=== PATIENT | female | born 1935 | race Caucasian/White ===

== ENCOUNTER 2017-08-12 09:33 | Emergency (ER) | payer MEDICARE, MEDICAID ==
[~2017-08-12] VITALS: Ht 152.4 cm; Wt 49.5 kg
[~2017-08-12 09:33] MED LIST: ACET-868 PO; AMIN30LI27 PO; AMLO10TA2 PO; CALC-261 PO; CLIN300C11 PO; CRAN3875 PO; CRAN425C6 PO; DEXT15DR6 EACHEYE; DOCU-141 PO; FERR1TAB44 PO; HYDR-4076 PO; HYDR-548 PO; HYDR-552 PO; LEVO75TA7 PO; MAGN400O21 PO; MELO-105 PO; PANT40TA2 PO; SULF1TAB48 PO; ZOLP5TAB2 PO
--- NOTE | 2017-08-12 09:42 | NUR ---
PATIENT BIBRA FROM [facility] C/O RIGHT UPPER ARM PAIN. NO TRAUMA NOTED. PATIENT IS A/OX 2. BREATHING EVEN AND UNLABORED. NO NEURO DEFICITS, NAD. VITALS STABLE. SAFETY AND COMFORT MEASURES IN PLACE. AWAITING MD ORDERS.
[2017-08-12] MEDS ORDERED: ACETAMINOPHEN 325 MG TABLET PO ONE (10:00)
--- NOTE | 2017-08-12 10:00 | NUR ---
NEW IV STARTED ON RAC, 20 G. BLOO DRAWN AND SENT TO LAB.
[2017-08-12] MEDS ORDERED: MULT-24 PO (10:06)
[2017-08-12] MEDS ORDERED: [UNRECOGNIZED DRUG - OTHER] SQ (10:06)
[2017-08-12] MEDS ORDERED: ACET-2605 PO (10:06)
[2017-08-12] MEDS ORDERED: ACID1TAB12 PO (10:06)
[2017-08-12] MEDS ORDERED: MELA3TAB PO (10:06)
[2017-08-12] MEDS ORDERED: HYDR-3026 PO (10:06)
[2017-08-12] MEDS ORDERED: LEVO50TA8 PO (10:06)
[2017-08-12] MEDS ORDERED: ACETAMINOPHEN 325 MG TABLET ONE (10:08)
--- NOTE | 2017-08-12 10:17 | NUR ---
AUTOMOTIVE WARRANTY ADMINISTRATOR AT BEDSIDE.
[2017-08-12 10:27] LABS: BASOPHILS % (AUTO) 0.2 % (0.0-2.0); EOSINOPHILS # (AUTO) 0.1 /CMM (0.0-0.7); EOSINOPHILS % (AUTO) 1.3 % (0.0-6.0); HEMATOCRIT 44 % (33-45); HEMOGLOBIN 14.8 g/dL (11.5-14.8); LYMPHOCYTES # (AUTO) 1.8 /CMM (0.8-4.8); LYMPHOCYTES % (AUTO) 24.9 % (20.0-44.0); MEAN CORPUSCULAR HEMOGLOBIN 31 PG (26.0-33.0); MEAN CORPUSCULAR HGB CONC 34 g/dl (31.0-36.0); MEAN CORPUSCULAR VOLUME 92 fL (82-100); MONOCYTES # (AUTO) 0.4 /CMM (0.1-1.30); MONOCYTES % (AUTO) 5.6 % (2.0-12.0); PLATELET COUNT (AUTO) 276 /CMM (150-450); RDW COEFFICIENT OF VARIATION 15.5 (11.5-15.0); RED BLOOD CELL COUNT(AUTO) 4.77 MIL/uL (4.0-5.2); WHITE BLOOD COUNT (AUTO) 7.3 K/uL (4.3-11.0)
[2017-08-12 10:33] LABS: INR 0.95 (0.87-1.13)
[2017-08-12 10:34] LABS: CALCIUM, SERUM 9.3 mg/dL (8.5-10.1); CARBON DIOXIDE 27 mmol/L (21-32); CHLORIDE 103 mmol/L (98-107); GLUCOSE 96 mg/dL (74-106); SODIUM SERUM 139 mmol/L (136-145); UREA NITROGEN, BLOOD 17 mg/dL (7-18)
[2017-08-12 10:41] LABS: TROPONIN I < 0.017 ng/mL (0.00-0.056)
[2017-08-12 10:47] LABS: ALANINE AMINOTRANSFERASE 15 U/L (12-78); ALBUMIN 3.6 g/dL (3.4-5.0); ALKALINE PHOSPHATASE 134 U/L (46-116); ASPARTATE AMINOTRANSFERASE 22 U/L (15-37); BILIRUBIN,DIRECT 0.1 mg/dL (0.0-0.2); BILIRUBIN,TOTAL 0.3 mg/dL (0.2-1.0); TOTAL PROTEIN, SERUM 8.3 g/dL (6.4-8.2)
--- NOTE | 2017-08-12 12:18 | NUR ---
CALLED [facility] FOR TRANSPORT ETA WAS 15 MINS. TRIP#[phone]
--- NOTE | 2017-08-12 13:00 | NUR ---
IV removed. Catheter intact and site benign. Pressure and 4x4 applied to site. No bleeding noted.
--- NOTE | 2017-08-12 13:04 | NUR ---
Patient discharged [facility] to SNF in stable condition. Written and verbal after care instructions given. Patient verbalizes understanding of instruction. Patient left with ambulance.
[2017-08-12 13:07] VITALS: BP 168/70
== END 2017-08-12 13:05 ==
LOC: ER 09:35
DX: M25.511 Pain in right shoulder (principal); R07.9 Chest pain, unspecified; F32.9 Major depressive disorder, single episode, unspecified; R51 Headache; I10 Essential (primary) hypertension; K21.9 Gastro-esophageal reflux disease without esophagitis; Z96.641 Presence of right artificial hip joint
CPT/HCPCS: 36415; 70450-TC; 71045-TC; 73030-TC; 80048-TC; 80076-TC; 84484-TC; 85025-TC; 85730-TC; A4606; Z7610

== ENCOUNTER 2019-08-27 02:32 | Inpatient (IN) | payer MEDICARE, OTHER ==
[~2019-08-27] VITALS: Ht 157.5 cm; Wt 42.8 kg
[2019-08-27] VITALS (7 sets, daily range): BP systolic 120–159; BP diastolic 67–81
[~2019-08-27 02:32] MED LIST changes: +ACET-2605 PO; +ACID1TAB12 PO; -AMLO10TA2 PO; +AMLO10TA7 PO; -CLIN300C11 PO; -DEXT15DR6 EACHEYE; -FERR1TAB44 PO; -HYDR-4076 PO; +HYDR-4384 PO; +HYDR-500 PO; -HYDR-548 PO; -HYDR-552 PO; +LEVO50TA8 PO; -LEVO75TA7 PO; +MELA3TAB41 PO; -MELO-105 PO; +MULT-24 PO; -SULF1TAB48 PO; -ZOLP5TAB2 PO; +[UNRECOGNIZED DRUG - OTHER] SQ
--- NOTE | 2019-08-27 02:45 | NUR ---
PT JESSICA FROM [facility] C/O ALTERED MENTAL STATUS. PT NONVERBAL, UNABLE TO OBTAIN HISTORY, RESPONSIVE TO MECHANICAL STIMULUS. PT CONNECTED TO THE MONITOR AND POX. IV LINE ESTABLISHED
[2019-08-27] MEDS ORDERED: IV NS 0.9% 500 ML BAG IV ONE (03:00)
--- NOTE | 2019-08-27 03:31 | NUR ---
URINE COLLECTED AND SENT TO LAB
[2019-08-27 03:35] LABS: BASOPHILS % (AUTO) 0.6 % (0.0-2.0); EOSINOPHILS % (AUTO) 0.5 % (0.0-6.0); HEMATOCRIT 35 % (33-45); HEMOGLOBIN 11.7 g/dL (11.5-14.8); LYMPHOCYTES # (AUTO) 1.6 /CMM (0.8-4.8); LYMPHOCYTES % (AUTO) 24.6 % (20.0-44.0); MEAN CORPUSCULAR HGB CONC 33 g/dl (31.0-36.0); MEAN CORPUSCULAR VOLUME 89 fL (82-100); MONOCYTES # (AUTO) 0.5 /CMM (0.1-1.30); MONOCYTES % (AUTO) 7.7 % (2.0-12.0); NEUTROPHILS # (AUTO) 4.5 /CMM (1.8-8.9); NEUTROPHILS % (AUTO) 66.6 % (43.0-81.0); PLATELET COUNT (AUTO) 253 /CMM (150-450); RED BLOOD CELL COUNT(AUTO) 3.95 MIL/uL (4.0-5.2); WHITE BLOOD COUNT (AUTO) 6.7 K/uL (4.3-11.0)
[2019-08-27] MEDS ORDERED: GABA-532 PO (03:37)
[2019-08-27] MEDS ORDERED: LEVO25TA7 GT (03:37)
[2019-08-27] MEDS ORDERED: MULT1TAB73 PO (03:37)
[2019-08-27] MEDS ORDERED: CALC-883 PO (03:37)
[2019-08-27] MEDS ORDERED: AMIN30LI2 PO (03:37)
[2019-08-27] MEDS ORDERED: AMLO10TA4 PO (03:37)
[2019-08-27] MEDS ORDERED: DOCU-141 PO (03:37)
[2019-08-27] MEDS ORDERED: LACT1CAP61 PO (03:37)
[2019-08-27] MEDS ORDERED: CRAN425C6 PO (03:37)
[2019-08-27] MEDS ORDERED: MAGN200T5 PO (03:37)
[2019-08-27] MEDS ORDERED: VENL37.55 PO (03:37)
[2019-08-27 03:41] LABS: APPEARANCE,URINE Cloudy (CLEAR); BILIRUBIN,URINE Negative (NEGATIVE); BLOOD, URINE Large Ery/uL (NEGATIVE); COLOR,URINE Other (YELLOW); KETONES,URINE Negative (NEGATIVE); LEUKOCYTE ESTERASE ,URINE Large (NEGATIVE); NITRITE, URINE Positive (NEGATIVE); PH,URINE 7.5 (5.0-8.0); PROTEIN,URINE 100 mg/dl (NEGATIVE); UGLUCOSE Negative (NEGATIVE); UROBILINOGEN,URINE 0.2 EU/dL (0.2)
[2019-08-27 03:47] LABS: SERUM AMMONIA < 10 umol/L (11-32)
[2019-08-27 03:50] LABS: BACTERIA,URINE Many /HPF (None Seen); RBC,URINE 21-50 /HPF (0-2); SQUAMOUS EPITHELIAL CELL,UR Rare /HPF (None Seen); WBC,URINE TOO NUMEROUS TO COUN /HPF (0-3)
[2019-08-27 03:55] LABS: CALCIUM, SERUM 8.7 mg/dL (8.5-10.1); CARBON DIOXIDE 23 mmol/L (21-32); CHLORIDE 107 mmol/L (98-107); CREATININE 0.9 mg/dL (0.6-1.3); GLUCOSE 120 mg/dL (74-106); POTASSIUM 3.6 mmol/L (3.5-5.1); SODIUM SERUM 141 mmol/L (136-145); UREA NITROGEN, BLOOD 21 mg/dL (7-18)
[2019-08-27 04:01] LABS: ALANINE AMINOTRANSFERASE 6 U/L (12-78); ALBUMIN 2.9 g/dL (3.4-5.0); ALCOHOL, BLOOD < 3 mg/dL (0-0); ALKALINE PHOSPHATASE 115 U/L (46-116); ASPARTATE AMINOTRANSFERASE 18 U/L (15-37); BILIRUBIN,DIRECT 0.1 mg/dL (0.0-0.2); BILIRUBIN,TOTAL 0.5 mg/dL (0.2-1.0); TOTAL PROTEIN, SERUM 7.2 g/dL (6.4-8.2)
[2019-08-27 04:02] LABS: ACETAMINOPHEN 0 ug/ml (10-30); SALICYLATE 0.4 mg/dL (2.8-20.0)
--- NOTE | 2019-08-27 04:12 | NUR ---
CALLED STEPH[facility] FOR REPORT
--- NOTE | 2019-08-27 04:20 | NUR ---
PT TAKEN TO CT
[2019-08-27] MEDS ORDERED: PIPERACILLIN /TAZOBACTAM 3.375 G VIAL IV ONE (04:27)
[2019-08-27] MEDS ORDERED: LEVOFLOXACIN 750 MG /D5W 150ML 150 ML IV ONE (04:28)
[2019-08-27] MEDS ORDERED: LEVOFLOXACIN 750 MG /D5W 150ML PIGGYBACK IV ONE (04:30)
[2019-08-27] MEDS ORDERED: PIPERACILLIN /TAZOBACTAM 3.375 G in IV D5W 50 ML IV ONE (04:30)
--- NOTE | 2019-08-27 04:30 | NUR ---
PT BACK FROM CT
[2019-08-27] MEDS ORDERED: ASPIRIN 300 MG/SUPP.RECT RC ONE ×2 (04:40→05:00)
--- NOTE | 2019-08-27 04:40 | NUR ---
PAGED VIP NEPHRO (DR. NAIR COMMERCIAL REAL ESTATE BROKER)
--- NOTE | 2019-08-27 05:42 | NUR ---
BED ASSIGNMENT 116-1
--- NOTE | 2019-08-27 05:50 | NUR ---
REPORT GIVEN TO JAVIER ARRIOLA
--- NOTE | 2019-08-27 06:20 | NUR ---
JAIL KEEPER NOTE PT ARRIVED TO FLOOR VIA [facility] ACCOMPANIED BY ER STAFF. PT IN STABLE CONDITION, NON-VERBAL. NO SIGNS OF SOB OR DISTRESS, NO INDICATION OF PAIN OR N/V. TELE MONITOR: SR 92. ALL CURRENT NEEDS ATTENDED TO. BED LOW, LOCKED, UPPER RAILS UP, AND CALL LIGHT WITHIN REACH. WILL CONT. TO MONITOR. DR. NAIR AWARE OF PT ARRIVAL TO FLOOR, TELEPHONE ORDERS BROUGHT WITH PT FROM ER. WILL ENDORSE TO NEXT SHIFT FOR CONTINUITY OF ADMISSION.
--- NOTE | 2019-08-27 06:21 | NUR ---
pt transferred to room in stable condition
[2019-08-27] MEDS ORDERED: ZOLPIDEM TARTRATE 5 MG TABLET PO PRN (07:00)
[2019-08-27] MEDS ORDERED: MAG HYDROX/AL HYDROX/SIMETH 30 ML UDC PO PRN (07:00)
[2019-08-27] MEDS ORDERED: ACETAMINOPHEN 325 MG TABLET PO PRN (07:00)
[2019-08-27] MEDS ORDERED: ONDANSETRON HCL/PF 4 MG/2 ML VIAL IVP PRN (07:00)
[2019-08-27] MEDS ORDERED: MAGNESIUM HYDROXIDE 30 ML UDC PO PRN (07:00)
[2019-08-27] MEDS ORDERED: Z GUARD REMEDY 2 OZ OINT TP PRN (07:00)
[2019-08-27] MEDS: LEVOTHYROXINE SODIUM 25 MCG TABLET PO SCH (07:30)
--- NOTE | 2019-08-27 08:20 | NUR ---
WOOD POLE TREATER NOTES PATIENT IS A/OX0 NOT ABLE TO OPEN EYES WHEN NAME CALLED OR TOUCHED OR PRESSURE.
[2019-08-27] MEDS: AMLODIPINE BESYLATE 10 MG TABLET PO SCH (09:00)
[2019-08-27] MEDS: VENLAFAXINE XR 37.5 MG CAP.SR.24H PO SCH (09:00)
[2019-08-27] MEDS: DOCUSATE SODIUM 100 MG CAPSULE PO SCH (09:00)
[2019-08-27] MEDS: GABAPENTIN 100 MG CAPSULE PO SCH ×2 (09:00→17:00)
[2019-08-27 09:12] LABS: CALCIUM, SERUM 8.5 mg/dL (8.5-10.1); CARBON DIOXIDE 20 mmol/L (21-32); CHLORIDE 104 mmol/L (98-107); GLUCOSE 105 mg/dL (74-106); MAGNESIUM 1.6 mg/dL (1.8-2.4); PHOSPHORUS 2.4 mg/dL (2.5-4.9); POTASSIUM 3.9 mmol/L (3.5-5.1); SODIUM SERUM 137 mmol/L (136-145); UREA NITROGEN, BLOOD 17 mg/dL (7-18)
[2019-08-27 09:24] LABS: BASOPHILS % (AUTO) 0.2 % (0.0-2.0); EOSINOPHILS % (AUTO) 0.1 % (0.0-6.0); HEMATOCRIT 38 % (33-45); HEMOGLOBIN 12.2 g/dL (11.5-14.8); LYMPHOCYTES # (AUTO) 0.7 /CMM (0.8-4.8); LYMPHOCYTES % (AUTO) 9.1 % (20.0-44.0); MEAN CORPUSCULAR HGB CONC 32 g/dl (31.0-36.0); MEAN CORPUSCULAR VOLUME 91 fL (82-100); MONOCYTES # (AUTO) 0.5 /CMM (0.1-1.30); MONOCYTES % (AUTO) 6.9 % (2.0-12.0); NEUTROPHILS # (AUTO) 6.2 /CMM (1.8-8.9); NEUTROPHILS % (AUTO) 83.7 % (43.0-81.0); WHITE BLOOD COUNT (AUTO) 7.4 K/uL (4.3-11.0)
--- NOTE | 2019-08-27 10:00 | NUR ---
COURT MAGISTRATE NOTES 0900 MEDICATIONS NOT ADMINISTRATED. PATIENT IS NOT ALERT AND ORIENTED. PATIENT MOVES WITH DEEP PAIN.
[2019-08-27 10:49] LABS: PLATELET COUNT (AUTO) 256 /CMM (150-450)
[2019-08-27] MEDS ORDERED: K PHOS NEUTRAL 250 MG TABLET PO ONE (11:30)
[2019-08-27] MEDS ORDERED: Sodium Phosphate 15 MMOL in IV D5W 250 ML IV ONE (12:00)
[2019-08-27] MEDS: ENOXAPARIN SODIUM 40 MG/0.4 ML DISP.SYRIN SQ SCH (12:35)
[2019-08-27] MEDS ORDERED: PIPERACILLIN /TAZOBACTAM 3.375 G in IV D5W 50 ML IV SCH (13:00)
[2019-08-27] MEDS: PIPERACILLIN /TAZOBACTAM 3.375 G in IV D5W 100 ML IV SCH ×2 (14:10→21:16)
[2019-08-27] MEDS ORDERED: Magnesium 1GM/D5W 100ML PREMIX 100 ML IV SCH (16:36)
[2019-08-27] MEDS ORDERED: Magnesium 1 GM/2 ML VIAL IV ONE (17:00)
[2019-08-27] MEDS ORDERED: IV NS 0.9% 1,000 ML IV PRN (17:00)
[2019-08-27] MEDS ORDERED: IV NS 0.9% 1,000 ML BAG IV PRN (17:00)
--- NOTE | 2019-08-27 17:00 | NUR ---
DIRECT SUPPORT STAFF NOTES CONTACTED DR FOWLER REGARDING MG 1.9 AND DIET FOR THE PATIENT. PT IS UNABLE TO OPEN HER EYES NOTIFIED .
--- NOTE | 2019-08-27 17:33 | NUR ---
DENTAL SERVICE TECHNICIAN NOTES PATIENT STILL A/OX O SHE OPENS EYES WITH DEEP PAIN STIMULATION. NEURONTIN NOT GIVEN ORALLY PATIENT IS NOT ALERT.
--- NOTE | 2019-08-27 19:15 | NUR ---
BUNDLE PERSON NOTES CLOSING PATIENT IN BED UNABLE TO OPEN EYES WHEN NAME CALLED. RESPONSE TO DEEP PAIN STIMULI. DAUGHTER AT BED SIDE. DISCUSSED ABOUT THE CODE STATUES. SHE AGREED TO KEEP THE CODE STATUE FULL CODE UNTIL SHE TALKS TO MD. ALL NEEDS ATTENDED.NO MAJOR CHANGES DURING SHIFT. CALL LIGHT WITHIN REACH , BED AT THE LOWEST POSITION LOCKED. ENDORSED TO LICENSED ARCHITECT NURSE FOR GENE.
--- NOTE | 2019-08-27 19:40 | NUR ---
TELEVISION REPORTER NOTES, RECEIVED PATIENT IN BED. RESPONDING TO REPOSITIONING , UNABLE TO OPEN EYES WHEN NAME CALLED. ON RA NO SOB OR ACUTE DISTRESS NOTED AT THIS TIME. ON TELE MONITOR HR @82 NORMAL SR. IV ON RFA #22 AND RHAND #24. FLUSHED AND PATENT, NO S/S OF INFILTRATION NOTED AT THIA TIME. CALL LIGHT WITHIN REACH , BED AT THE LOWEST POSITION LOCKED. WILL CONTINUE TO MONITOR.
[2019-08-28] VITALS (10 sets, daily range): BP systolic 119–145; BP diastolic 53–87
[2019-08-28] MEDS: PIPERACILLIN /TAZOBACTAM 3.375 G in IV D5W 100 ML IV SCH ×3 (05:43→20:55)
[2019-08-28 06:55] LABS: BASOPHILS % (AUTO) 0.7 % (0.0-2.0); HEMATOCRIT 36 % (33-45); HEMOGLOBIN 11.7 g/dL (11.5-14.8); LYMPHOCYTES # (AUTO) 0.9 /CMM (0.8-4.8); LYMPHOCYTES % (AUTO) 14.8 % (20.0-44.0); MEAN CORPUSCULAR HGB CONC 33 g/dl (31.0-36.0); MEAN CORPUSCULAR VOLUME 90 fL (82-100); MONOCYTES # (AUTO) 0.7 /CMM (0.1-1.30); MONOCYTES % (AUTO) 10.7 % (2.0-12.0); NEUTROPHILS # (AUTO) 4.6 /CMM (1.8-8.9); NEUTROPHILS % (AUTO) 72.8 % (43.0-81.0); PLATELET COUNT (AUTO) 227 /CMM (150-450); RED BLOOD CELL COUNT(AUTO) 4.02 MIL/uL (4.0-5.2); WHITE BLOOD COUNT (AUTO) 6.4 K/uL (4.3-11.0)
--- NOTE | 2019-08-28 07:00 | NUR ---
RN OPENING NOTE: RECEIVED PATIENT ASLEEP IN BED. ON ROOM AND TOLERATING WELL. NO S/SX OF RESPIRATORY DISTRESS NOTED. NO SOB. TELE MONITORING SHOWING SR NOTED. IV SITES CLEAN, DRY, PATENT AND INTACT. IV INFUSION OF NS @ 50MLS/HR BEING TOLERATED WELL. NO PAIN NOTED. CALL LIGHT IN REACH. BED LOCKED, LOW AND AT SEMI-LINARES'S POSITION. SAFETY MEASURES ENSURED AND OBSERVED. WILL CONTINUE TO MONITOR.
[2019-08-28 07:13] LABS: CALCIUM, SERUM 8.1 mg/dL (8.5-10.1); PHOSPHORUS 3.4 mg/dL (2.5-4.9); POTASSIUM 3.3 mmol/L (3.5-5.1)
--- NOTE | 2019-08-28 07:46 | NUR ---
SUPERVISOR MARBLE NOTES, PATIENT IN BED SLEEPING. RESPONDING TO REPOSITIONING , UNABLE TO OPEN EYES WHEN NAME CALLED. ON RA NO SOB OR ACUTE DISTRESS NOTED AT THIS TIME. ON TELE MONITOR HR IN 80's. NORMAL SR. IV ON RFA #22 AND RHAND #24. FLUSHED AND PATENT, NO S/S OF INFILTRATION NOTED AT THIA TIME. CALL LIGHT WITHIN REACH , BED AT THE LOWEST POSITION LOCKED. ENDORSED THE PATIENT TO AM RN FOR GENE.
[2019-08-28] MEDS ORDERED: POTASSIUM CHLORIDE 20 MEQ TAB.PRT.SR PO SCH (10:00)
[2019-08-28] MEDS: AMLODIPINE BESYLATE 10 MG TABLET PO SCH (10:30)
[2019-08-28] MEDS: VENLAFAXINE XR 37.5 MG CAP.SR.24H PO SCH (10:30)
[2019-08-28] MEDS: GABAPENTIN 100 MG CAPSULE PO SCH (10:30)
[2019-08-28] MEDS: DOCUSATE SODIUM 100 MG CAPSULE PO SCH (10:30)
[2019-08-28] MEDS: LEVOTHYROXINE SODIUM 25 MCG TABLET PO SCH (10:30)
--- NOTE | 2019-08-28 10:30 | NUR ---
RN NOTE: PATIENT WAS FOUND UNRESPONSIVE TO DEEP PAIN UPON OFFERING OF MEDICATION AND BREAKFAST AFTER REFUSAL EARLIER ON SHIFT. PATIENT WITH HX OF BEING LETHARGIC AND WAS REPORTED BY NIGHT NURSE TO HAVE SLEPT THE WHOLE NIGHT ON HER SHIFT. EARLIER ON SHIFT, PATIENT WAS ABLE TO WAKE UPON CHECKING OF VITAL SIGNS AND EXPRESSED TO TAKE MEDICATIONS AND BREAKFAST LATE TO REST SOME MORE. DR. LAWRENCE WAS INFORMED OF THE SITUATION AND ORDER FOR STAT ABG PLACED WITH NEURO CONSULT TO BE ARRANGED BY .
[2019-08-28] MEDS ORDERED: POTASSIUM CL. PREMIX PERIPHER. 50 ML IV SCH (11:00)
[2019-08-28] MEDS ORDERED: POTASSIUM CHLORIDE 20 MEQ TAB.PRT.SR PO ONE (11:00)
--- NOTE | 2019-08-28 11:43 | NUR ---
rn note: patient's kdur 20meq changed to IV by Dr. Adams
[2019-08-28] MEDS: ENOXAPARIN SODIUM 40 MG/0.4 ML DISP.SYRIN SQ SCH (12:01)
[2019-08-28] MEDS: POTASSIUM CL. PREMIX PERIPHER. 50 ML IV SCH ×2 (12:02→13:36)
--- NOTE | 2019-08-28 16:32 | NUR ---
rn note: patient was seen by Dr. Jenkins for Neuro consult
--- NOTE | 2019-08-28 19:15 | NUR ---
RN CLOSING NOTE NOTE: PATIENT ASLEEP IN BED. RESPONSIVE TO DEEP PAIN. DR. LANGSTON AND MALCOLM AWARE OF PATIENT'S CURRENT SITUATION. ON ROOM AND TOLERATING WELL. NO S/SX OF RESPIRATORY DISTRESS NOTED. NO SOB. TELE MONITORING SHOWING SR NOTED. IV SITES CLEAN, DRY, PATENT AND INTACT. NO PAIN NOTED. CALL LIGHT IN REACH. SAFETY ENSURED AND OBSERVED. BED LOCKED, LOW AND AT SEMI-LINARES'S POSITION. SIDE RAILS UP X3. ENDORSED TO DIRECTOR HEMATOLOGY FOR GENE.
--- NOTE | 2019-08-28 19:40 | NUR ---
DIRECTOR OF EVENT MARKETING NOTES, RECEIVED PATIENT IN BED SLEEPING , UNABLE TO OPEN EYES WHEN NAME CALLED. PER AM RN DR FOWLER IS AWARE AND PATIENT WAS SEEN BY DR LANGSTON. ON RA NO SOB OR ACUTE DISTRESS NOTED AT THIS TIME. ON TELE MONITOR HR IN 80's. NORMAL SR. IV ON RFA #22 AND RHAND #24. FLUSHED AND PATENT, NO S/S OF INFILTRATION NOTED AT THIA TIME. CALL LIGHT WITHIN REACH , BED AT THE LOWEST POSITION LOCKED. WILL CONTINUE TO MONITOR.
[2019-08-28] MEDS: ATORVASTATIN 10 MG TABLET PO SCH ×2 (21:54→22:00)
--- NOTE | 2019-08-28 22:06 | NUR ---
ATORVASTATIN WAS NOT ADMINISTERED DUE TO PATIENT NOT RESPONDING AND UNABLE TO SWALLOW.
[2019-08-29] VITALS (8 sets, daily range): BP systolic 143–150; BP diastolic 66–81
--- NOTE | 2019-08-29 00:15 | NUR ---
PATIENT WAS SUCTIONED DUE TO HEARING THE GURGLING IN THE THOUGHT. RT NOTIFIED AND REQUESTED TO CHECK ON PATIENT AND SUCTION NEEDED.
[2019-08-29] MEDS: LEVOFLOXACIN 750 MG /D5W 150ML 750 MG in PREMIX 1 EA IV SCH (03:37)
--- NOTE | 2019-08-29 05:02 | NUR ---
PATIENT IS ON TELE MONITOR WITH ST AND HR RISING TO 130 SINCE 5 AM, TEMP WAS 100.2, USED ICE COOLING TO LOWER THE HR WILL CONTINUE TO MONITOR.
[2019-08-29] MEDS: PIPERACILLIN /TAZOBACTAM 3.375 G in IV D5W 100 ML IV SCH ×3 (05:07→21:21)
--- NOTE | 2019-08-29 07:15 | NUR ---
RN OPENING NOTE: RECEIVED PATIENT IN BED. AROUSABLE TO DEEP PAIN. EYES WITH NO REACTION TO LIGHT. ON ROOM AIR AND TOLERATING WELL. NO S/SX OF RESPIRATORY DISTRESS NOTED. NO SOB. TELE MONITORING SHOWING SINUS TACHYCARDIA NOTED IN THE 110-120S. IV SITES CLEAN, DRY, PATENT AND INTACT. NO PAIN NOTED. CALL LIGHT IN REACH. BED LOCKED, LOW AND AT SEMI-LINARES'S POSITION. SAFETY MEASURES ENSURED AND OBSERVED. WILL CONTINUE TO MONITOR. Addendum: 08/29/19 at 0848 by MARIANN TENA RN patient on contact isolation for MRSA of nares. isolation precautions in place
[2019-08-29] MEDS: LEVOTHYROXINE SODIUM 25 MCG TABLET PO SCH (07:30)
--- NOTE | 2019-08-29 07:40 | NUR ---
PARTY PLAN SALES CONSULTANT CLOSING NOTES, PATIENT IN BED SLEEPING, UNABLE TO OPEN EYES AND ONLY RESPONDED TO REPOSITIONING AND SUCTIONING. PATIENT IS ON TELE MONITOR WITH HR NORMAL ST AND RISING TO 130 SINCE 5 AM, TEMP WAS 100.2. ON RA, NO SOB OR ACUTE DISTRESS NOTED AT THIS TIME. IV ON RFA #22 AND RHAND #24 AND DEE PICC LINE. FLUSHED AND PATENT, NO S/S OF INFILTRATION NOTED AT THIA TIME. CALL LIGHT WITHIN REACH , BED AT THE LOWEST POSITION LOCKED. ENDORSED THE PATIENT TO AM RN FOR GENE.
[2019-08-29 08:32] LABS: BASOPHILS # (AUTO) 0.1 /CMM (0.0-0.2); BASOPHILS % (AUTO) 0.6 % (0.0-2.0); EOSINOPHILS % (AUTO) 0.2 % (0.0-6.0); HEMATOCRIT 43 % (33-45); HEMOGLOBIN 13.8 g/dL (11.5-14.8); LYMPHOCYTES # (AUTO) 1.4 /CMM (0.8-4.8); LYMPHOCYTES % (AUTO) 14.8 % (20.0-44.0); MEAN CORPUSCULAR HGB CONC 32 g/dl (31.0-36.0); MEAN CORPUSCULAR VOLUME 90 fL (82-100); MONOCYTES # (AUTO) 0.7 /CMM (0.1-1.30); MONOCYTES % (AUTO) 7.6 % (2.0-12.0); NEUTROPHILS # (AUTO) 7.2 /CMM (1.8-8.9); NEUTROPHILS % (AUTO) 76.8 % (43.0-81.0); PLATELET COUNT (AUTO) 280 /CMM (150-450); RED BLOOD CELL COUNT(AUTO) 4.76 MIL/uL (4.0-5.2); WHITE BLOOD COUNT (AUTO) 9.3 K/uL (4.3-11.0)
[2019-08-29 08:47] LABS: ALANINE AMINOTRANSFERASE < 6 U/L (12-78); ALBUMIN 2.7 g/dL (3.4-5.0); ALKALINE PHOSPHATASE 112 U/L (46-116); ASPARTATE AMINOTRANSFERASE 26 U/L (15-37); BILIRUBIN,TOTAL 1.1 mg/dL (0.2-1.0); CALCIUM, SERUM 8.6 mg/dL (8.5-10.1); CARBON DIOXIDE 16 mmol/L (21-32); CHLORIDE 103 mmol/L (98-107); CREATININE 1.2 mg/dL (0.6-1.3); GLUCOSE 113 mg/dL (74-106); MAGNESIUM 1.8 mg/dL (1.8-2.4); PHOSPHORUS 2.8 mg/dL (2.5-4.9); POTASSIUM 3.6 mmol/L (3.5-5.1); SODIUM SERUM 136 mmol/L (136-145); TOTAL PROTEIN, SERUM 7.5 g/dL (6.4-8.2); UREA NITROGEN, BLOOD 14 mg/dL (7-18)
[2019-08-29 08:53] LABS: THYROID STIMULATING HORMONE 0.823 uIU/mL (0.358-3.74)
[2019-08-29] MEDS: AMLODIPINE BESYLATE 10 MG TABLET PO SCH (09:00)
[2019-08-29] MEDS: DOCUSATE SODIUM 100 MG CAPSULE PO SCH (09:00)
[2019-08-29] MEDS: MUPIROCIN OINT 2% 22 GM TUBE SCH ×2 (09:00→21:08)
[2019-08-29] MEDS: VENLAFAXINE XR 37.5 MG CAP.SR.24H PO SCH (09:00)
[2019-08-29 09:57] LABS: ABG BASE EXCESS -5.7 mmol/L; ABG OXYGEN SATURATION 97.2 % (92.0-98.5); ABG PCO2 19.8 mmHg (35.0-45.0); ABG PO2 93.6 mmHg (75.0-100.0); AaDO2 32.4 mmHg; COHb 0.3 % (0.5-1.5); MetHb 0.4 % (0.0-1.5); O2Hb 96.5 % (94.0-97.0); SITE, ABG Right Radial; VENT MODE, BG ROOM AIR
--- NOTE | 2019-08-29 10:00 | NUR ---
rn note: relayed ABG results to Dr. Schaefer.
[2019-08-29] MEDS: ENOXAPARIN SODIUM 40 MG/0.4 ML DISP.SYRIN SQ SCH (11:24)
--- NOTE | 2019-08-29 11:37 | NUR ---
JAVIER NOTE: HEAD CT RESULTS RELAYED TO DR. FOWLER
--- NOTE | 2019-08-29 14:26 | NUR ---
rn note: portia, son, was added as person to notraciy and next of kin to patient's chart. approval was given by Bren Turner.
--- NOTE | 2019-08-29 19:11 | NUR ---
NEEDLE MAKER NOTES: RECEIVED PATIENT Patient in bed, eyes closed but with slight movement in upper eyelid when trying to wake up, poorly responsive. Sinus rhythm in the Tele monitor, not in distress. Fall precaution maintained, remains on contract isolation, PPE utilized.
--- NOTE | 2019-08-29 19:15 | NUR ---
RN CLOSING NOTE: PATIENT STILL IN BED. AROUSABLE TO DEEP PAIN. EYES WITH NO REACTION TO LIGHT. MD AWARE OF CURRENT SITUATION. PATIENT ON CONTACT ISOLATION, PRECAUTIONS OBSERVED. ON ROOM AIR AND TOLERATING WELL. NO S/SX OF RESPIRATORY DISTRESS NOTED. NO SOB. NO FEVER NOTED. TELE MONITORING SHOWING SINUS RHYTHM. IV SITES CLEAN, DRY, PATENT AND INTACT. NO PAIN NOTED. CALL LIGHT IN REACH. BED LOCKED, LOW AND AT SEMI-LINARES'S POSITION. SAFETY MEASURES ENSURED AND OBSERVED. ENDORSED TO ONCOMING SHIFT FOR GENE.
[2019-08-30] VITALS (7 sets, daily range): BP systolic 106–142; BP diastolic 55–73
[2019-08-30] MEDS: PIPERACILLIN /TAZOBACTAM 3.375 G in IV D5W 100 ML IV SCH (05:25)
[2019-08-30 06:07] LABS: BASOPHILS % (AUTO) 0.6 % (0.0-2.0); EOSINOPHILS % (AUTO) 1.2 % (0.0-6.0); HEMATOCRIT 38 % (33-45); HEMOGLOBIN 12.5 g/dL (11.5-14.8); LYMPHOCYTES # (AUTO) 1.5 /CMM (0.8-4.8); LYMPHOCYTES % (AUTO) 22.2 % (20.0-44.0); MEAN CORPUSCULAR HGB CONC 33 g/dl (31.0-36.0); MEAN CORPUSCULAR VOLUME 90 fL (82-100); MONOCYTES # (AUTO) 0.7 /CMM (0.1-1.30); MONOCYTES % (AUTO) 10.1 % (2.0-12.0); NEUTROPHILS # (AUTO) 4.5 /CMM (1.8-8.9); NEUTROPHILS % (AUTO) 65.9 % (43.0-81.0); PLATELET COUNT (AUTO) 254 /CMM (150-450); RED BLOOD CELL COUNT(AUTO) 4.27 MIL/uL (4.0-5.2); WHITE BLOOD COUNT (AUTO) 6.9 K/uL (4.3-11.0)
--- NOTE | 2019-08-30 06:16 | NUR ---
GREEN HIDE INSPECTOR NOTES: SHIFT REPORT Patient in bed, VS remains stable. Still less responsive, does not opens eyes. Sinus rhythm in the Tele monitor. IV antibiotic as scheduled. Skin/ Fall/ contact precaution maintained. PPE utilized. Dietary consult to follow. Will endorse to Oncoming RN.
[2019-08-30 06:37] LABS: ALANINE AMINOTRANSFERASE < 6 U/L (12-78); ALBUMIN 2.3 g/dL (3.4-5.0); ALKALINE PHOSPHATASE 89 U/L (46-116); ASPARTATE AMINOTRANSFERASE 48 U/L (15-37); BILIRUBIN,TOTAL 0.8 mg/dL (0.2-1.0); CALCIUM, SERUM 8.3 mg/dL (8.5-10.1); CARBON DIOXIDE 22 mmol/L (21-32); CHLORIDE 105 mmol/L (98-107); CREATININE 1.1 mg/dL (0.6-1.3); GLUCOSE 92 mg/dL (74-106); MAGNESIUM 1.7 mg/dL (1.8-2.4); PHOSPHORUS 2.7 mg/dL (2.5-4.9); POTASSIUM 3.1 mmol/L (3.5-5.1); SODIUM SERUM 139 mmol/L (136-145); TOTAL PROTEIN, SERUM 6.6 g/dL (6.4-8.2); UREA NITROGEN, BLOOD 15 mg/dL (7-18)
[2019-08-30 06:52] LABS: THYROID STIMULATING HORMONE 0.424 uIU/mL (0.358-3.74)
[2019-08-30] MEDS: LEVOTHYROXINE SODIUM 25 MCG TABLET PO SCH (07:30)
--- NOTE | 2019-08-30 07:30 | NUR ---
RN OPENING NOTES RECEIVED PATIENT RESTING IN BED COMFORTABLY, DOES NOT SHOW ANY S/SX OF DISTRESS AT THIS TIME. SHE IS AOX0, NON-VERBAL, AND DIFFICULT TO AROUSE. SHE IS ON 2L OF OXYGEN VIA NC, TOLERATING WELL. TELE MONITOR SHOWING SR. SHE IS ON REGULAR DIET. RFA 22 G IS PATENT AND INTACT, SHERRI MIDLINE IS PATENT AND INTACT. SAFETY MEASURES HAVE BEEN IMPLEMENTED, CALL LIGHT IS WITHIN REACH, BED IS IN LOWEST AND LOCKED POSITION, SIDE RAILS UP X2, WILL CONTINUE TO MONITOR FOR ANY CHANGES.
[2019-08-30] MEDS: POTASSIUM CL. PREMIX PERIPHER. 50 ML IV SCH ×4 (07:38→11:08)
[2019-08-30] MEDS: VENLAFAXINE XR 37.5 MG CAP.SR.24H PO SCH (09:00)
[2019-08-30] MEDS: AMLODIPINE BESYLATE 10 MG TABLET PO SCH (09:00)
[2019-08-30] MEDS: DOCUSATE SODIUM 100 MG CAPSULE PO SCH (09:00)
[2019-08-30] MEDS: ENOXAPARIN SODIUM 40 MG/0.4 ML DISP.SYRIN SQ SCH (09:18)
[2019-08-30] MEDS: MUPIROCIN OINT 2% 22 GM TUBE SCH ×2 (09:19→21:34)
[2019-08-30] MEDS: Magnesium 1GM/D5W 100ML PREMIX 100 ML IV SCH ×2 (13:09→14:13)
--- NOTE | 2019-08-30 19:25 | NUR ---
RN OPENING NOTES RECEIVED PATIENT RESTING IN BED COMFORTABLY, ON RA, DOES NOT SHOW ANY S/SX OF DISTRESS AT THIS TIME. SHE IS A & OX0, NON-VERBAL, AND AROUSAL TO DEEP PAIN STIMULI. RFA 22 G IS PATENT AND INTACT, SHERRI MIDLINE IS PATENT AND INTACT. HOB ELEVATED AT 40 DEGREE AT ALL TIME ORDERED BY MD. SAFETY MEASURES HAVE BEEN IMPLEMENTED, CALL LIGHT IS WITHIN REACH, BED IS IN LOWEST AND LOCKED POSITION, SIDE RAILS UP X2, WILL CONTINUE TO MONITOR FOR ANY CHANGES.
--- NOTE | 2019-08-30 19:42 | NUR ---
RN CLOSING NOTES PATIENT IS RESTING IN BED COMFORTABLY AT THIS TIME. PT IS STILL DIFFICULT TO AROUSE, DOES NOT OPEN HER EYES. SHE RESPONDS TO STERNAL RUB BUT STILL DOES NOT OPEN HER EYES. NO ACUTE CHANGES OCCURRED THROUGHOUT THE SHIFT, VITAL SIGNS ARE STABLE, PT NEEDS HAVE BEEN MET. SAFETY MEASURES HAVE BEEN IMPLEMENTED, CALL LIGHT IS WITHIN REACH, BED IS IN LOWEST AND LOCKED POSITION, SIDE RAILS UP X2, PT HAS BEEN ENDORSED TO NIGHTSHIFT RN FOR GENE.
[2019-08-30] MEDS: ATORVASTATIN 10 MG TABLET PO SCH (22:00)
--- NOTE | 2019-08-30 22:30 | NUR ---
HELD LIPITOR PATIENT IS SLEEPING AT THIS TIME, RESPONDS TO DEEP PAIN STIMULI ONLY, UNABLE TO FOLLOW DIRECTIONS & UNABLE TO SWALLOW MEDICINE SAFELY.
[2019-08-31] MEDS: LEVOFLOXACIN 750 MG /D5W 150ML 750 MG in PREMIX 1 EA IV SCH (03:28)
[2019-08-31 04:54] VITALS: BP_SYST 130; BP_SYST 132; BP_DIAS 56; BP_DIAS 58
[2019-08-31 06:22] LABS: BASOPHILS % (AUTO) 0.6 % (0.0-2.0); EOSINOPHILS % (AUTO) 2.8 % (0.0-6.0); HEMATOCRIT 38 % (33-45); HEMOGLOBIN 12.3 g/dL (11.5-14.8); LYMPHOCYTES # (AUTO) 1.2 /CMM (0.8-4.8); LYMPHOCYTES % (AUTO) 17.8 % (20.0-44.0); MEAN CORPUSCULAR HGB CONC 33 g/dl (31.0-36.0); MEAN CORPUSCULAR VOLUME 89 fL (82-100); MONOCYTES # (AUTO) 0.7 /CMM (0.1-1.30); MONOCYTES % (AUTO) 10.8 % (2.0-12.0); NEUTROPHILS # (AUTO) 4.5 /CMM (1.8-8.9); PLATELET COUNT (AUTO) 245 /CMM (150-450); RED BLOOD CELL COUNT(AUTO) 4.24 MIL/uL (4.0-5.2); WHITE BLOOD COUNT (AUTO) 6.6 K/uL (4.3-11.0)
[2019-08-31 07:07] LABS: ALBUMIN 2.3 g/dL (3.4-5.0); BILIRUBIN,TOTAL 0.5 mg/dL (0.2-1.0); CALCIUM, SERUM 8.2 mg/dL (8.5-10.1); CREATININE 1.1 mg/dL (0.6-1.3); MAGNESIUM 2.3 mg/dL (1.8-2.4); PHOSPHORUS 2.1 mg/dL (2.5-4.9); POTASSIUM 3.6 mmol/L (3.5-5.1); TOTAL PROTEIN, SERUM 6.3 g/dL (6.4-8.2)
--- NOTE | 2019-08-31 07:19 | NUR ---
RN NOTE PATIENT'S CONDITION REMAINS SAME. NO CHANGES NOTED. ENDORSED TO AM RN FOR CONTINUITY OF CARE.
[2019-08-31] MEDS: LEVOTHYROXINE SODIUM 25 MCG TABLET PO SCH (07:30)
--- NOTE | 2019-08-31 07:30 | NUR ---
RN OPENING NOTE: RECEIVED PATIENT IN BED THIS MORNING. PATIENT IS OBTUNDED. EDEMA NOTED ON BLE +1. BR. ON RA, NO RESPIRATORY DISTRESS NOTED. PATIENT IS ON A REGULAR DIET BUT UNABLE TO EAT FOOD/ TAKE PO MEDS. MIDLINE ON SHERRI, #22 ON RFA, FLUSHING WELL, SITE C/D/I. SAFETY MEASURES IMPLEMENTED, BED IN LOWEST POSITION, LOCKED, SIDE RAILS UP X2, CALL LIGHT WITHIN REACH. WILL CONTINUE TO MONITOR PATIENT.
[2019-08-31 08:00] VITALS: BP 111/59
[2019-08-31] MEDS: DOCUSATE SODIUM 100 MG CAPSULE PO SCH (08:36)
[2019-08-31] MEDS: VENLAFAXINE XR 37.5 MG CAP.SR.24H PO SCH (08:37)
[2019-08-31] MEDS: AMLODIPINE BESYLATE 10 MG TABLET PO SCH (08:37)
--- NOTE | 2019-08-31 08:37 | NUR ---
PATIENT UNABLE TO TAKE 0900 PO MEDS D/T UNABLE TO OPEN MOUTH. AWAITING ST [facility]ZA WELL. Addendum: 08/31/19 at 1049 by BRAYDEN BRONSON RN CONTACTED DR KWOK OFFICE TO INFORM HIM THAT PATIENT HAS NOT BEEN EATING/ TAKING PO MEDS DUE TO MS. AWAITING CALL BACK.
[2019-08-31] MEDS: ENOXAPARIN SODIUM 40 MG/0.4 ML DISP.SYRIN SQ SCH (09:35)
[2019-08-31] MEDS: MUPIROCIN OINT 2% 22 GM TUBE SCH ×2 (09:37→21:03)
[2019-08-31 14:06] VITALS: BP 111/59
--- NOTE | 2019-08-31 14:11 | NUR ---
CORE TEMP 95.0. WARMING MEASURES IMPLEMENTED. TURNED UP TEMP IN ROOM. BEAR HUGGER ORDERED AND PLACED ON PATIENT. WILL CONTINUE TO MONITOR.
[2019-08-31 16:00] VITALS: BP 136/63
[2019-08-31] MEDS ORDERED: Sodium Phosphate 15 MMOL in IV D5W 250 ML IV ONE (18:00)
--- NOTE | 2019-08-31 19:54 | NUR ---
RN CLOSING NOTE: PATIENT IS RESTING IN BED. OBTUNDED. VSS. NO RESPIRATORY DISTRESS NOTED. NO ISSUED W/ IV SITE. SAFETY MEASURES HAVE BEEN IMPLEMENTED, CALL LIGHT IS WITHIN REACH, BED IS IN LOWEST AND LOCKED POSITION, SIDE RAILS UP X2, PT HAS BEEN ENDORSED TO NIGHTSHIFT RN FOR CONTINUITY OF CARE.
[2019-08-31 20:00] VITALS: BP 138/61
[2019-08-31] MEDS: ATORVASTATIN 10 MG TABLET PO SCH (21:03)
[2019-09-01] VITALS (7 sets, daily range): BP systolic 108–139; BP diastolic 42–73
[2019-09-01 06:52] LABS: BASOPHILS % (AUTO) 0.5 % (0.0-2.0); EOSINOPHILS % (AUTO) 0.4 % (0.0-6.0); HEMATOCRIT 40 % (33-45); HEMOGLOBIN 13.2 g/dL (11.5-14.8); LYMPHOCYTES # (AUTO) 1.1 /CMM (0.8-4.8); LYMPHOCYTES % (AUTO) 15.7 % (20.0-44.0); MEAN CORPUSCULAR HGB CONC 33 g/dl (31.0-36.0); MEAN CORPUSCULAR VOLUME 88 fL (82-100); MONOCYTES # (AUTO) 0.7 /CMM (0.1-1.30); MONOCYTES % (AUTO) 10.4 % (2.0-12.0); NEUTROPHILS # (AUTO) 5.1 /CMM (1.8-8.9); PLATELET COUNT (AUTO) 323 /CMM (150-450); RED BLOOD CELL COUNT(AUTO) 4.54 MIL/uL (4.0-5.2)
[2019-09-01] MEDS: LEVOTHYROXINE SODIUM 25 MCG TABLET PO SCH (07:30)
--- NOTE | 2019-09-01 07:35 | NUR ---
RN OPENING NOTE: RECEIVED PATIENT IN BED. OBTUNDED , EYES WITH NO REACTION TO LIGHT. ON ROOM AIR AND TOLERATING WELL. NO S/SX OF RESPIRATORY DISTRESS NOTED. NO SOB. IV ACCESS ON R U A MIDLINE, RUNNING NS 0.9% @TKO, INTACT, PATENT AND FLUSHED WELL. NO SIGNS OF INFILTRATION NOTED. NO FACIAL GRIMACING NOTED. BLE NOTED +1. CALL LIGHT IN REACH. BED LOCKED, LOW AND AT SEMI-LINARES'S POSITION. SAFETY MEASURES ENSURED AND OBSERVED. WILL CONTINUE TO MONITOR.
[2019-09-01 07:47] LABS: ALANINE AMINOTRANSFERASE 9 U/L (12-78); ALBUMIN 2.7 g/dL (3.4-5.0); ALKALINE PHOSPHATASE 96 U/L (46-116); ASPARTATE AMINOTRANSFERASE 37 U/L (15-37); CALCIUM, SERUM 8.3 mg/dL (8.5-10.1); CARBON DIOXIDE 14 mmol/L (21-32); CHLORIDE 105 mmol/L (98-107); CREATININE 1.8 mg/dL (0.6-1.3); GLUCOSE 113 mg/dL (74-106); PHOSPHORUS 3.9 mg/dL (2.5-4.9); SODIUM SERUM 139 mmol/L (136-145); TOTAL PROTEIN, SERUM 7.2 g/dL (6.4-8.2); UREA NITROGEN, BLOOD 23 mg/dL (7-18)
[2019-09-01 08:20] LABS: BILIRUBIN,TOTAL 0.4 mg/dL (0.2-1.0)
[2019-09-01] MEDS: DOCUSATE SODIUM 100 MG CAPSULE PO SCH (08:46)
[2019-09-01] MEDS: VENLAFAXINE XR 37.5 MG CAP.SR.24H PO SCH (08:46)
[2019-09-01] MEDS: AMLODIPINE BESYLATE 10 MG TABLET PO SCH (08:46)
--- NOTE | 2019-09-01 08:48 | NUR ---
RN NOTES HELD JOSHUA CURRY COLACE. PATIENT IS SLEEPING AT THIS TIME, RESPONDS TO DEEP PAIN STIMULI ONLY, UNABLE TO FOLLOW DIRECTIONS & UNABLE TO SWALLOW MEDICINE SAFELY.
[2019-09-01] MEDS: ENOXAPARIN SODIUM 40 MG/0.4 ML DISP.SYRIN SQ SCH (09:49)
[2019-09-01] MEDS: MUPIROCIN OINT 2% 22 GM TUBE SCH ×2 (09:50→22:48)
[2019-09-01 09:59] LABS: MAGNESIUM 2.2 mg/dL (1.8-2.4)
--- NOTE | 2019-09-01 11:41 | NUR ---
RN NOTES CALLED THE OFFICE OF DR FOWLER AND DR HARRIS REGARDING THE ELEVATED TEMP AND HR OF THE PATIENT. WAITING FOR CALL BACK
--- NOTE | 2019-09-01 16:46 | NUR ---
RN NOTES CALLED THE OFFICE OF DR PASCAL AND LEFT A MESSAGE REGARDING THE ELEVATED TEMP AND HR OF THE PATIENT. WAITING FOR CALL BACK
--- NOTE | 2019-09-01 17:40 | NUR ---
RN NOTES CALLED THE OFFICE OF DR DONALD AGAIN AND LEFT A MESSAGE REGARDING THE ELEVATED TEMP AND HR OF THE PATIENT
--- NOTE | 2019-09-01 17:50 | NUR ---
RN NOTE: Received a telephone call from Dr. Engel and updated him that the patient was febrile with axillary temp of 101.1F with cooling measures implemented. MD was informed that the patient was kept NPO. No NGT/GT was in placed. MD with an order for a Tylenol suppository, noted and carried out. Primary nurse Uqe was made aware.
--- NOTE | 2019-09-01 17:55 | NUR ---
RN NOTES ADMINISTERED TYLENOL 650MG RECTALLY.
[2019-09-01] MEDS ORDERED: ACETAMINOPHEN 650 MG/SUPP.RECT RC PRN (18:00)
--- NOTE | 2019-09-01 19:33 | NUR ---
RN CLOSING NOTES PATIENT IN BED. OBTUNDED , EYES WITH NO REACTION TO LIGHT. ON OXYGEN VIA NASAL CANNULA @3 L, SATURATING WELL @96 %. NO S/SX OF RESPIRATORY DISTRESS NOTED. IV ACCESS ON R U A MIDLINE, RUNNING NS 0.9% @TKO, INTACT, PATENT AND FLUSHED WELL. NO SIGNS OF INFILTRATION NOTED. NO FACIAL GRIMACING NOTED. BLE NOTED +1. KEPT CLEAN AND DRY. ALL NEEDS MET. ENDORSED TO PM RN FOR GENE.
--- NOTE | 2019-09-01 19:55 | NUR ---
CALLED DR NAIR FOR PATIENT;S STATUS RR=10 SHALLOW AND GASPING, PATIENT IS NON RESPONSIVE, NON VERBAL, PALE. RELAYED THE V/S. AND INFORMED HIM THAT THE PATIENT HAD TEMP OF 103 FROM THE DAY SHIFT ACCORDING TO THE REPORTS. MADE ORDERS AND CARRIED OUT. FOR STAT CHEST XRAY AND STAT ABG. TOOLING ENGINEERING TECH ELSA MADE AWARE.
--- NOTE | 2019-09-01 20:16 | NUR ---
STAT CHEST XRAY DONE WAITING FOR THE RESULTS. CALLED RT LETY FOR STAT ABG.
--- NOTE | 2019-09-01 20:35 | NUR ---
PLACED ICE PACKS ON BOTH AXILLAE.
--- NOTE | 2019-09-01 20:37 | NUR ---
PATIENT'S TEMP IS 101.1/AXILLARY.
[2019-09-01] MEDS ORDERED: VANCOMYCIN 1 GM in IV D5W 250 ML IV SCH (21:30)
[2019-09-01] MEDS: ATORVASTATIN 10 MG TABLET PO SCH (22:00)
[2019-09-01] MEDS ORDERED: VANCOMYCIN 1 GM in IV D5W 250 ML IV ONE (22:00)
[2019-09-01] MEDS ORDERED: VANCOMYCIN 1 GM VIAL ONE (22:42)
--- NOTE | 2019-09-01 23:31 | NUR ---
2100- CALLED QARNI AND RELAYED RESULTS OF ABG AND CHEST XRAY RESULTS, AND AWARE THAT THE PATIENT HAD TEMP 103 IN THE DAYSHIFT, AND TONIGHT WAS 101.1, ORDERED TO TRANSFER TO ICU WITH SAME ORDERS AND TO PLACE THE PATIENT ON BI-PAP. CHARGE NURSE AWARE AND CALLED THE CONVEYOR LINE BAKERY WORKER. 2139- REPORTS GIVEN TO ICU CHARGE NURSE ED. 2147- PATIENT WAS TRANSFERRED TO ICU.. 2299- PATIENT WAS TRANSFERRED BACK TO THE FLOOR FROM ICU. PATIENT STILL NOT RESPONSIVE, PALE, SHALLOW BREATHING. ON O2 AT 6L/MIN NC. 230- PATIENT'S FAMILY MEMBERS CAME.
--- NOTE | 2019-09-01 23:41 | NUR ---
PATIENT'S DIAPER CHANGED. PAWAN-CARE GIVEN, KEPT PATIENT DRY AND CLEAN. HOB ELEVATED. BOTH HEELS OFFLOADED. WITH SKIN DISCOLORATIONS NOTED ON THE LOWER BACK AND SACRAL AREA WITH MEPILEX DRESSINGS ON. TURNED TO SIDE WITH PILLOW. WITH BRUISE ON THE LEFT FOREARM NOTED. PATIENT DOESN'T OPEN HER EYES.
[2019-09-02] MEDS: LEVOFLOXACIN 750 MG /D5W 150ML 750 MG in PREMIX 1 EA IV SCH (03:34)
[2019-09-02 04:00] VITALS: BP 111/48
--- NOTE | 2019-09-02 05:25 | NUR ---
went to check patient cessation of breathing noted pulse not appreciated pt is DNR .Pronounced time of at 0525hrs.Md Dr Mathews notified , nursing auto rental supervisor ben culver , [facility] made aware , daughter daniel Turner made aware will call us for mortuary arrangement.all treatment discontinued post mortem rendered .
--- NOTE | 2019-09-02 06:31 | NUR ---
O525- CHARGE NURSE NAHUM CHECKED THE PATIENT. PATIENT WAS NOT BREATHING, AND VERY PALE. PATIENT HAS NO CAROTID PULSE, NO RESPIRATIONS, NO HEART BEAT ON AUSCULTATION. CHEST IS NOT MOVING. PUPILS ARE DILATED. PRONOUNCED BY CHARGE NURSE NAHUM. SIMON INFORMED THE BROACHING MACHINE SET UP OPERATOR. 0533- PATIENT'S DAUGHTER NAOMI NOTIFIED. POST MORTEM CARE DONE BY NAHUM AND USAMA. 0542- [facility] NOTIFIED THRU MARGARETH. 0549-SABINO IN ADMITTING NOTIFIED. 0550- INFORMED DR FOWLER AND DR NAIR.
--- NOTE | 2019-09-02 06:41 | NUR ---
RECEIVED A CALL FROM [facility], SPOKE TO DAJUAN, SHE GAVE THE CASE [id number], RECORDED ON THE PAPER.
== END 2019-09-02 08:38 | disposition expired | DRG 193 ==
LOC: ER 02:33 → TELE1 06:01 → MEDSG1 08-30 04:19 → ICU 09-01 21:49 → MEDSG1 09-01 22:19
PROVIDERS: ADMIT Internal Medicine; ATTEND Internal Medicine
PROC: 05H533Z Insertion of Infusion Device into Right Subclavian Vein, Percutaneous Approach (ICD-10-PCS; principal; 2019-08-28)
DX: J15.9 Unspecified bacterial pneumonia (principal); I21.A1 Myocardial infarction type 2; G92 Toxic encephalopathy; I63.9 Cerebral infarction, unspecified; N39.0 Urinary tract infection, site not specified; E03.9 Hypothyroidism, unspecified; F03.90 Unspecified dementia, unspecified severity, without behavioral disturbance, psychotic disturbance, mood disturbance, and anxiety; K21.9 Gastro-esophageal reflux disease without esophagitis; F39 Unspecified mood [affective] disorder; M81.0 Age-related osteoporosis without current pathological fracture; B96.20 Unspecified Escherichia coli [E. coli] as the cause of diseases classified elsewhere; F09 Unspecified mental disorder due to known physiological condition; I11.0 Hypertensive heart disease with heart failure; I50.9 Heart failure, unspecified; D64.9 Anemia, unspecified; Z96.641 Presence of right artificial hip joint; R40.2433 Glasgow coma scale score 3-8, at hospital admission; H66.92 Otitis media, unspecified, left ear; H70.90 Unspecified mastoiditis, unspecified ear; Z66 Do not resuscitate
CPT/HCPCS: 36410; 36415; 36600; 70450-TC; 70551-TC; 71045-TC; 80048-TC; 80053-TC; 80061-TC; 80076-TC; 80305; 81000-TC; 82140-TC; 82803-TC; 82962-TC; 83605-TC; 83735-TC; 84100-TC; 84439-TC; 84443-TC; 84481; 84484-TC; 85025-TC; 85730-TC; 87040-TC; 87081-TC; 87086-TC; 87186-TC; 93307-TC; 93880-TC; 95819-TC; A4216; A9563; G0378; G0480; J1650; J1956; J2543; J3370; J3475; J3480; J3490; J7030; J7040; J7050; J7060